=== PATIENT | female | born 1940 | race Caucasian/White ===

== ENCOUNTER 2024-03-10 05:56 | Inpatient (IN) ==
--- NOTE | 2024-03-10 06:47 | Emergency Department Note ---
Impression & Plan Hypoxia, Pancolitis, Pneumonia ED Provider Note NAME: ZABRINA QUICK AGE: 83 SEX: F : 1940 ARRIVES VIA: Walk-In INFORMANT: Patient ED PROVIDER(S): Artis Waddell DO CHIEF COMPLAINT: abdominal pain HPI: Patient is an 83-year-old female with a past medical history of anxiety, diabetes who presents to the ER for left lower quadrant abdominal pain. She admits to history of diverticulitis. Pain has been present since Wednesday and getting worse. Today she is having nausea and vomiting. Patient denies any headache or change in vision. No chest pain or shortness of breath. No dysuria, urgency, or frequency. No other exacerbating or remitting factors. ADDITIONAL HISTORY OBTAINED: Per HPI Chronic Medical/Social Conditions Affecting Care: Per HPI PAST MEDICAL HISTORY:See Below PAST SURGICAL HISTORY:See Below FAMILY HISTORY:See Below SOCIAL HISTORY:See Below HOME MEDICATIONS:See Below ALLERGIES:See Below VITALS:See Below PHYSICAL EXAMINATION: GENERAL: Sitting up in bed, alert, chronically ill-appearing, disheveled EYE EXAM: normal conjunctiva. OROPHARYNX: mucous membranes are moist NECK: supple, no nuchal rigidity, no adenopathy, non-tender LUNGS: Clear to auscultation. Normal chest wall mechanics HEART: no murmurs, S1 normal and S2 normal ABDOMEN: abdomen soft, TTP in LLQ, normo-active bowel sounds, no masses, no rebound or guarding. UPPER EXTREMITIES: upper extremities are grossly normal. LOWER EXTREMITIES: No pitting edema. NEURO EXAM: Normal sensorium, cranial nerves II-XII grossly intact, normal speech, no gross weakness of arms, no gross weakness of legs. MEDICAL DECISION MAKING: Patient is an 83-year-old female who presents ER for the above-stated complaint. IV was established blood work was obtained. Labs show leukocytosis of 13.7 thousand. No significant anemia. BMP was fairly unremarkable with exception of elevated glucose at 168. Mag low at 1.6. T. bili at 1.4. LFTs troponin were negative. Lipase was normal. UA was contaminated with multiple epithelial cells. CT abdomen pelvis was obtained and showed a diffuse pancolitis and pneumonia. Chest x-ray confirms infiltrate. Patient was updated at bedside. She was given IV Levaquin and IV fluids. Discussed case with the hospitalist for further evaluation management treatment. She remained on 2 L nasal cannula throughout her stay in the ER due to the hypoxia. Consults/Care Managements Discussions: Per MDM Triage Nursing notes reviewed. Limited review of prior medical records performed Vital Signs: reviewed and remarkable for no significant abnormalities Differential diagnosis: Differential diagnoses includes but is not limited to gastritis, peptic ulcer disease, GERD, gallbladder disease, pancreatitis, small bowel obstruction, appendicitis, diverticulitis, hernia, urinary tract infection, torsion, perforation, trauma, infectious. ER treatment provided: See below Diagnostics interpreted by me include EKG and cardiac monitoring as listed below: -Cardiac Monitoring: An order was placed for continuous cardiac monitoring. The monitor shows a rate of 92 with sinus rhythm. -ECG: Sinus rhythm rate of [address] changes in the high lateral leads Septal Q waves QTc 466 -Laboratory studies:Interpreted by me as stated above in MDM and shown below. Imaging studies: Xrays: As interpreted by me: Portable AP upright 1 view of the chest shows left lower lobe infiltrate CTs show: CT abdomen pelvis as described above Procedures:none Critical Care: I have personally spent 32 minutes of critical care time in the direct management of this patient. This includes bedside care, interpretation of diagnostic studies, and testing, discussion with consultants, patient, and family members, and other required patient management activities. This 32 minutes is in excess of all separately billable procedures. Past Med/Surg History Problem List (Updated 03/10/24 @ 12:33 by Artis Waddell DO) Pneumonia (Acute) Pancolitis (Acute) Hypoxia (Acute) Hypoxia Lobar pneumonia Colitis Osteoporosis Anxiety Hyperlipidemia Diabetes Cerumen impaction Dependent edema (Acute) Left thyroid nodule Tympanic membrane perforation Thyroid nodule Mixed conductive and sensorineural hearing loss of right ear with restricted hearing of left ear Sensorineural hearing loss (SNHL) of left ear with restricted hearing of right ear Medical History (Updated 03/10/24 @ 12:33 by Artis Waddell DO) History of benign breast biopsy Osteoarthritis DDD (degenerative disc disease) Diverticular disease DM type 2 (diabetes mellitus, type 2) Hearing deficit Left > Right (wears hearing aid on left side) Surgical History History of right cataract surgery History of tonsillectomy History of removal of cyst History of colonoscopy History of laparoscopic appendectomy Hx laparoscopic cholecystectomy Family History Mother Stroke Cancer Sister Heart disease Son Heart disease Myocardial infarction Denies family history of Hearing loss No family history of adverse response to anesthesia No family history of bleeding disorder Allergies Asthma Social History Smoking Status: Never smoker Second Hand Exposure: Yes (son and d-i-l smoke); Do You Dip or Chew Tobacco: No; Hx Alcohol Use: No Hx Substance Use: No Preferred Language: Venezuelan Communication Ability: Effective Visual Impairment: Limited Hearing Ability: 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 Beliefs That Will Affect Care: None marital status: / Current Living Situation: Alone current occupational status: retired How many Children do You have: 3 Feels Safe at Home: Yes Childhood Exposure to Second-Hand Smoke: Yes caffeine: Yes (1 cup of coffee/tea per day) Dental Care, Regularly: No Physical Activity Frequency: Does not Exercise Seatbelt Use: always Sunscreen Use: Yes Assistive Devices: Cane, Denture - Upper, Denture - Lower, Glasses and Hearing Aid - Left Allergies Allergies Allergy/AdvReac Type Severity Reaction Status Date / Time cephalexin Allergy Unknown UNKNOWN Verified 03/09/24 16:43 morphine Allergy Unknown UNKNOWN Verified 03/09/24 16:43 Sulfa (Sulfonamide Allergy Unknown Hives Verified 03/09/24 16:43 Antibiotics) Cephalosporins Allergy Unknown Verified 03/09/24 16:43 codeine AdvReac Unknown disoriented Verified 03/09/24 16:43 metronidazole AdvReac Unknown hallucinati Verified 03/09/24 16:43 ons Home Meds Home Medications Medication Instructions Recorded Confirmed levocetirizine 5 mg tablet (Xyzal) 2.5 mg PO QPM 01/21/21 03/10/24 aspirin 81 mg tablet,delayed 81 mg PO QAM 09/25/21 03/10/24 release calcium carbonate 600 mg-vitamin 1 tab PO BID 09/25/21 03/10/24 D3 10 mcg (400 unit) tablet (Calcium 600 + D(3)) peg 400-propylene glycol (PF) 0.4 1 drp ophthalmic (eye) QID 09/25/21 03/10/24 %-0.3 % eye drops in a dropperette (Systane (PF)) semaglutide 7 mg tablet (Rybelsus) 7 mg PO QAM 09/25/21 03/10/24 blood sugar diagnostic ([facility] 01/17/24 03/09/24 Verio test strips) buspirone 10 mg tablet 10 mg PO BID PRN Anxiety 01/17/24 03/10/24 ibuprofen 200 mg tablet 200 mg PO Q4H PRN Pain 01/17/24 03/10/24 lancets 30 gauge ([facility] 01/17/24 03/09/24 Plus Lancet) meclizine 25 mg tablet 25 mg PO TID PRN dizziness 01/17/24 03/10/24 metformin 500 mg tablet,extended 500 mg PO DAILY 01/17/24 03/10/24 release 24 hr tramadol 50 mg tablet 25 mg PO BID PRN Pain 01/17/24 03/10/24 alendronate 70 mg tablet 70 mg PO WK 03/10/24 03/10/24 olopatadine 0.1 % eye drops 1 drp ophthalmic (eye) BID 03/10/24 03/10/24 Previous Rx's Medication Instructions Recorded fluticasone propionate 50 2 spray intranasal DAILY #15.8 mL 02/10/24 mcg/actuation nasal spray,suspension atorvastatin 20 mg tablet (Lipitor) 20 mg PO QAM #90 tabs 02/14/24 gabapentin 100 mg capsule 100 mg PO BID #180 caps 02/14/24 Results & Data (ED) Vital Signs Vital Signs - 24 hr 03/10/24 06:00 03/10/24 06:18 03/10/24 06:35 Temperature 37.0 C 36.9 C Temperature Source Oral Oral Pulse Rate 106 H 104 H Pulse Rate [Apical] 103 H Pulse Rhythm Regular Pulse Rhythm [Apical] Regular Pulse Strength Normal Respiratory Rate 20 19 Respiratory Effort / Characteristics Non-Labored Spontaneous Non-Labored Spontaneous Respiratory Depth Normal Normal Respiratory Pattern Regular Regular Blood Pressure 112/64 Blood Pressure [Right Arm] 128/74 Blood Pressure Mean 80 Blood Pressure Mean [Right Arm] 92 Blood Pressure Position Sitting Blood Pressure Position [Right Arm] Lying Pulse Oximetry 92 94 Oxygen Delivery Method Room Air Room Air Oxygen Flow Rate Sepsis Recent Fever Within 48 Hours No Sepsis New/Unexplained Change in Mental Status No Sepsis Action Taken by Nursing No Action Required 03/10/24 06:58 03/10/24 07:00 03/10/24 09:00 Temperature Temperature Source Pulse Rate Pulse Rate [Apical] 80 Pulse Rhythm Pulse Rhythm [Apical] Pulse Strength Respiratory Rate 20 Respiratory Effort / Characteristics Non-Labored Spontaneous Respiratory Depth Normal Respiratory Pattern Blood Pressure Blood Pressure [Right Arm] 120/61 Blood Pressure Mean Blood Pressure Mean [Right Arm] 80 Blood Pressure Position Blood Pressure Position [Right Arm] Pulse Oximetry 88 L 96 96 Oxygen Delivery Method Room Air Nasal Cannula Nasal Cannula Oxygen Flow Rate 2 2 Sepsis Recent Fever Within 48 Hours Sepsis New/Unexplained Change in Mental Status Sepsis Action Taken by Nursing Laboratory Data 03/10/24 06:33 03/10/24 06:33 Lab Results 03/10/24 03/10/24 Range/Units 06:33 06:40 WBC 13.72 H (4.8-10.8) K/ul RBC 4.89 (4.20-5.40) M/uL Hgb 15.3 (12.0-16.0) g/dl Hct 45.5 (37.0-47.0) % MCV 93.0 (80.0-100.0) fL MCH 31.3 (25.0-34.0) pg MCHC 33.6 (32.0-36.0) g/dL RDW Std Deviation 47.0 H (36.4-46.3) fL RDW Coeff of Jeromy 13.7 (11.5-14.5) % Plt Count 277 (130-400) K/uL MPV 9.8 (9.4-12.4) fL Immature Gran % (Auto) 0.5 % Neut % (Auto) 88.9 % Lymph % (Auto) 4.3 % Benson % (Auto) 5.7 % Eos % (Auto) 0.3 % Baso % (Auto) 0.3 % Neut # (Auto) 12.20 H (1.40-6.50) K/uL Lymph # (Auto) 0.59 L (1.20-3.40) K/uL Benson # (Auto) 0.78 H (0.11-0.59) K/uL Eos # (Auto) 0.04 (0.00-0.50) K/uL Baso # (Auto) 0.04 (0.00-0.20) K/uL Immature Gran # (Auto) 0.07 (0.01-0.20) K/uL Sodium 135 L (136-145) mmol/L Potassium 3.7 (3.5-5.1) mmol/L Chloride 98 (98-107) mmol/L Carbon Dioxide 24 (21-32) mmol/L Anion Gap 13 H (3-11) BUN 22 (6-23) mg/dl Creatinine 0.90 (0.6-1.2) mg/dl Est Cr Clr Drug Dosing 38.6 ml/min Est GFR ( Amer) 69.0 ml/min Est GFR (Non-Af Amer) 59.5 ml/min BUN/Creatinine Ratio 24.4 H (10-20) Glucose 168 H (70-99(Fasting)) mg/dl Calcium 9.2 (8.6-10.3) mg/dl Magnesium 1.6 L (1.7-2.4) mg/dl Total Bilirubin 1.4 H (0.2-1.0) mg/dl AST 28 (13-39) U/L ALT 19 (7-52) U/L Alkaline Phosphatase 62 (34-104) U/L Troponin I High Sens 12.1 (0-14) pg/ml Total Protein 7.9 (6.0-8.3) gm/dl Albumin 4.1 (3.4-5.0) gm/dl Globulin 3.8 (2.5-4.0) gm/dl Albumin/Globulin Ratio 1.1 (0.9-2) Lipase 7 L (11-82) U/L Urine Color Dark Yellow Urine Appearance Turbid A (Clear) Urine pH 5.0 (4.5-7.5) Ur Specific [place] 1.033 H (1.000-1.030) Urine Protein 1+ H (Negative) Urine Glucose (UA) Negative (Negative) Urine Ketones 2+ H (Negative) Urine Blood Negative (Negative) Urine Nitrite Negative (Negative) Urine Bilirubin 1+ H (Negative) Urine Urobilinogen Negative (Negative) Ur Leukocyte Esterase Negative (Negative) Urine WBC (Auto) 6-10 H (0-5) /hpf Urine RBC (Auto) 3-5 H (0-2) /hpf U Hyaline Cast (Auto) 6-10 H (0-2) /lpf U Epithel Cells (Auto) >20 H (0-2) /hpf Urine Bacteria (Auto) None Seen (None Seen) Administered Medications Discontinued Medications Sodium Chloride (Nss) 500 mls @ 999 mls/hr IV .Q31M STA Stop: 03/10/24 06:38 Last Infusion: 03/10/24 07:29 Dose: Infused Documented By: Admin: 03/10/24 06:56 Dose: 999 mls/hr Documented By: TIN Levofloxacin/Dextrose (Levaquin/D5w) 750 mg in 150 mls @ 100 mls/hr IV NOW STA Stop: 03/10/24 10:27 Last Infusion: 03/10/24 11:55 Dose: Infused Documented By: Admin: 03/10/24 09:53 Dose: 100 mls/hr Documented By: ZEUS Ioversol (Optiray 320 100ml) 94 ml IV ONCE ONE Stop: 03/10/24 07:29 Last Admin: 03/10/24 07:29 Dose: 94 ml Documented By: RICHARD Ketorolac Tromethamine (Ketorolac Tromethamine 15 Mg/Ml Vial) 10 mg IV NOW STA Stop: 03/10/24 06:09 Last Admin: 03/10/24 06:51 Dose: 10 mg Documented By: TIN Ondansetron HCl (Ondansetron Inj 2 Mg/Ml 2 Ml Vial) 4 mg IV NOW STA Stop: 03/10/24 06:09 Last Admin: 03/10/24 06:52 Dose: 4 mg Documented By: TIN Imaging Data Radiologist's Impression: Abdomen/Pelvis CT 03/10/24 06:08 CT SCAN OF THE ABDOMEN AND PELVIS WITH IV CONTRAST CLINICAL HISTORY: Lower abdominal pain. COMPARISON STUDY: Abdominal CT dated 04/15/2016. TECHNIQUE: Following the IV administration of 94 cc of Optiray 320, CT scan of the abdomen and pelvis is performed from the lung bases to the proximal femora. Images are reviewed in the axial, sagittal, and coronal planes. IV contrast was administered without complication. A dose lowering technique was utilized adhering to the principles of ALARA. CT DOSE: 1093.69 mGy.cm FINDINGS: Lung bases: The heart is normal in size and without pericardial effusion. Dependent consolidation is seen at both lung bases. No pleural effusion is identified. There is a small hiatal hernia. Liver: The contrast-enhanced liver is normal in size, contour, and attenuation. There is mild intrahepatic biliary ductal dilatation. The hepatic veins and portal veins are patent. Gallbladder: Surgically absent noting clips in the gallbladder fossa. Spleen: Normal in size and attenuation. There are calcified splenic granulomas. 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 Pancreas: Unremarkable. Adrenal glands: Unremarkable. Kidneys: The contrast enhanced kidneys are normal in size and without hydronephrosis. The kidneys enhance symmetrically. Abdominal vasculature: The abdominal aorta is normal in course and caliber noting mild atherosclerotic calcification. Bowel: There is diffuse wall thickening of the colon and rectum, which is greatest involving the left colon. The left colon is edematous with surrounding inflammation. Duodenal diverticula are noted. There is mild colonic diverticulosis without CT evidence of acute diverticulitis. The appendix is not identified and reported surgically absent. Peritoneum: There is no intraperitoneal free air or abdominal ascites. There is a small fat-containing umbilical hernia. Lymphadenopathy: None. Pelvic viscera: The bladder is decompressed and appears circumferentially thick walled. The uterus and adnexa are normal as visualized. Skeletal structures: The skeletal structures are osteopenic. There is moderate lumbosacral spondylosis. No lytic or blastic lesions are seen. IMPRESSION: 1. Findings are consistent with a nonspecific proctocolitis, greatest involving the left colon. Correlate clinically. 2. Mild colonic diverticulosis without CT evidence of acute diverticulitis. 3. Dependent airspace consolidation at both lung bases could represent atelectasis and/or pneumonia. Correlate clinically. 4. The bladder wall is decompressed and appears circumferentially thick walled. Correlate with clinical findings and urinalysis. 5. Additional findings as above. ACT 112: Negative or not required by law. Electronically signed by: Yonny Aceves M.D. 03/10/2024 8:24 AM Chest X-Ray 03/10/24 08:27 SINGLE VIEW CHEST CLINICAL HISTORY: Cough FINDINGS: An AP, portable, upright chest radiograph is compared to study dated 05/16/2014. The cardiomediastinal silhouette is top normal for projection noting atherosclerotic calcification of the thoracic aorta. Airspace consolidation is seen at the medial left lung base. No large pleural effusion or pneumothorax is identified. The skeletal structures are osteopenic. The bony thorax is grossly intact. Excreted IV contrast is seen in the renal collecting systems. IMPRESSION: Airspace consolidation is noted at the medial left lung base. This could represent atelectasis versus pneumonia. Clinical correlation will be required and radiographic follow-up to resolution is recommended. ACT 112: Negative or not required by law. Electronically signed by: Yonny Aceves M.D. 03/10/2024 8:43 AM Discharge Plan Visit Data Chief Complaint: Abdominal Pain Stated Complaint: ABD PAIN ED Provider: Artis Waddell Discharge Problem: Hypoxia, Pancolitis, Pneumonia Forms Stand Alone Forms: [facility] Prescriptions Prescriptions: No Action fluticasone propionate 50 mcg/actuation spray,suspension 2 spray intranasal DAILY Qty: 15.8 3RF Rx Instructions: administer into each nostril gabapentin 100 mg capsule 100 mg PO BID Qty: 180 3RF atorvastatin [Lipitor] 20 mg tablet 20 mg PO QAM Qty: 90 3RF levocetirizine [Xyzal] 5 mg tablet 2.5 mg PO QPM Rx Instructions: Unable to verify OTC meds at this date/time. meclizine 25 mg tablet 25 mg PO TID PRN (Reason: dizziness) tramadol 50 mg tablet 25 mg PO BID PRN (Reason: Pain) (DME) OneTouch Verio test strips Strip See Rx Instructions .ROUTE .MEDSUPPLY Qty: 10 Rx Instructions: As directed (DME) lancets [OneTouch Delica Plus Lancet] 30 gauge misc See Rx Instructions .ROUTE .MEDSUPPLY Qty: 100 Rx Instructions: As directed metformin 500 mg tablet extended release 24 hr 500 mg PO DAILY aspirin 81 mg Tablet,Delayed Release (Dr/Ec) 81 mg PO QAM Rx Instructions: Unable to verify OTC meds at this date/time. Systane (PF) 0.4-0.3 % Dropperette 1 drp OPHTHALMIC (EYE) QID Rx Instructions: Unable to verify OTC meds at this date/time. calcium carbonate-vitamin D3 [Calcium 600 + D(3)] 600 mg-10 mcg (400 unit) Tablet 1 tab PO BID Rx Instructions: Unable to verify OTC meds at this date/time. Rybelsus 7 mg Tablet 7 mg PO QAM buspirone 10 mg tablet 10 mg PO BID PRN (Reason: Anxiety) ibuprofen 200 mg tablet 200 mg PO Q4H PRN (Reason: Pain) Rx Instructions: Unable to verify OTC meds at this date/time. olopatadine 0.1 % drops 1 drp ophthalmic (eye) BID Rx Instructions: At intervals of 6 - 8 hours alendronate 70 mg tablet 70 mg PO WK Rx Instructions: 70 mg orally TAKE 1 TABLET BY MOUTH ONCE A WEEK WITH 8OZ OF WATER 30 MINUTES BEFORE FIRST MEAL OF THE DAY; Referrals Referrals: Henri Teran CRNP [Primary Care Provider] - Discharge Problem: Pneumonia Qualifiers: Pneumonia type: due to unspecified organism Laterality: unspecified laterality Lung location: unspecified part of lung Qualified Code(s): J18.9 - Pneumonia, unspecified organism
[2024-03-10] MEDS: KETOROLAC TROMETHAMINE 15 MG/ML VIAL IV STA (06:51)
[2024-03-10] MEDS: ONDANSETRON INJ 2 MG/ML 2 ML VIAL IV STA (06:52)
[2024-03-10] MEDS: SODIUM CHLORIDE 0.9% 500 ML IV STA (06:56)
[2024-03-10 07:00] LABS: Basophils # (auto) 0.04 K/uL (0.00-0.20); Basophils % (auto) 0.3 %; Eosinophils # (auto) 0.04 K/uL (0.00-0.50); Eosinophils % (auto) 0.3 %; Hematocrit (blood only) 45.5 % (37.0-47.0); Hemoglobin 15.3 g/dl (12.0-16.0); Immature Granulocytes # (auto) 0.07 K/uL (0.01-0.20); Immature Granulocytes % (auto) 0.5 %; Lymphocytes # (auto) 0.59 K/uL (1.20-3.40); Lymphocytes % (auto) 4.3 %; Mean Corpuscular Hemoglobin 31.3 pg (25.0-34.0); Mean Corpuscular Hgb Conc 33.6 g/dL (32.0-36.0); Mean Platelet Volume 9.8 fL (9.4-12.4); Monocytes # (auto) 0.78 K/uL (0.11-0.59); Monocytes % (auto) 5.7 %; Neutrophils % (auto) 88.9 %; Platelet Count 277 K/uL (130-400); RDW Coefficient of Variation 13.7 % (11.5-14.5); Red Blood Count 4.89 M/uL (4.20-5.40); White Blood Count 13.72 K/ul (4.8-10.8)
[2024-03-10 07:25] LABS: Albumin Globulin Ratio 1.1 (0.9-2); Albumin Level 4.1 gm/dl (3.4-5.0); BUN Creatinine Ratio 24.4 (10-20); Bilirubin,Total 1.4 mg/dl (0.2-1.0); Calcium 9.2 mg/dl (8.6-10.3); Creatinine Clr Calc Pharmacy 38.6 ml/min; Est GFR (Non-African American) 59.5 ml/min; Globulin 3.8 gm/dl (2.5-4.0); Magnesium 1.6 mg/dl (1.7-2.4); Potassium 3.7 mmol/L (3.5-5.1); Total Protein 7.9 gm/dl (6.0-8.3)
[2024-03-10] MEDS: OPTIRAY 320 100ml IV ONE (07:29)
[2024-03-10 07:30] LABS: Troponin I High Sensitivity 12.1 pg/ml (0-14)
[2024-03-10 08:14] LABS: Appearance Urine Turbid (Clear); Bacteria Urine Automated None Seen (None Seen); Bilirubin Urine 1+ (Negative); Blood Urine Negative (Negative); Color Urine Dark Yellow; Epithelial Cell Urine Auto >20 /hpf (0-2); Glucose Urine UA Negative (Negative); Ketones Urine 2+ (Negative); Leukocyte Esterase Urine Negative (Negative); Nitrite Urine Negative (Negative); Protein Urine 1+ (Negative); Specific Gravity Urine 1.033 (1.000-1.030); Urobilinogen Urine Negative (Negative)
--- NOTE | 2024-03-10 08:25 | CT Scan Report ---
CT SCAN OF THE ABDOMEN AND PELVIS WITH IV CONTRAST CLINICAL HISTORY: Lower abdominal pain. COMPARISON STUDY: Abdominal CT dated 04/15/2016. TECHNIQUE: Following the IV administration of 94 cc of Optiray 320, CT scan of the abdomen and pelvi s is performed from the lung bases to the proximal femora. Images are reviewed in the axial, sagittal , and coronal planes. IV contrast was administered without complication. A dose lowering technique wa s utilized adhering to the principles of ALARA. CT DOSE: 1093.69 mGy.cm FINDINGS: Lung bases: The heart is normal in size and without pericardial effusion. Dependent consolidation is seen at both lung bases. No pleural effusion is identified. There is a small hiatal hernia. Liver: The contrast-enhanced liver is normal in size, contour, and attenuation. There is mild intrahe patic biliary ductal dilatation. The hepatic veins and portal veins are patent. Gallbladder: Surgically absent noting clips in the gallbladder fossa. Spleen: Normal in size and attenuation. There are calcified splenic granulomas. 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 Pancreas: Unremarkable. Adrenal glands: Unremarkable. Kidneys: The contrast enhanced kidneys are normal in size and without hydronephrosis. The kidneys enh ance symmetrically. Abdominal vasculature: The abdominal aorta is normal in course and caliber noting mild atheroscleroti c calcification. Bowel: There is diffuse wall thickening of the colon and rectum, which is greatest involving the left colon. The left colon is edematous with surrounding inflammation. Duodenal diverticula are noted. Th ere is mild colonic diverticulosis without CT evidence of acute diverticulitis. The appendix is not identified and reported surgically absent. Peritoneum: There is no intraperitoneal free air or abdominal ascites. There is a small fat-containin g umbilical hernia. Lymphadenopathy: None. Pelvic viscera: The bladder is decompressed and appears circumferentially thick walled. The uterus an d adnexa are normal as visualized. Skeletal structures: The skeletal structures are osteopenic. There is moderate lumbosacral spondylosi s. No lytic or blastic lesions are seen. IMPRESSION: 1. Findings are consistent with a nonspecific proctocolitis, greatest involving the left colon. Corre late clinically. 2. Mild colonic diverticulosis without CT evidence of acute diverticulitis. 3. Dependent airspace consolidation at both lung bases could represent atelectasis and/or pneumonia. Correlate clinically. 4. The bladder wall is decompressed and appears circumferentially thick walled. Correlate with clinic al findings and urinalysis. 5. Additional findings as above. ACT 112: Negative or not required by law. Electronically signed by: Yonny Aceves M.D. 03/10/2024 8:24 AM
--- NOTE | 2024-03-10 08:45 | XRay Report ---
SINGLE VIEW CHEST CLINICAL HISTORY: Cough FINDINGS: An AP, portable, upright chest radiograph is compared to study dated 05/16/2014. The cardiom ediastinal silhouette is top normal for projection noting atherosclerotic calcification of the thorac ic aorta. Airspace consolidation is seen at the medial left lung base. No large pleural effusion or p neumothorax is identified. The skeletal structures are osteopenic. The bony thorax is grossly intact. Excreted IV contrast is seen in the renal collecting systems. IMPRESSION: Airspace consolidation is noted at the medial left lung base. This could represent atelec tasis versus pneumonia. Clinical correlation will be required and radiographic follow-up to resolutmarie n is recommended. ACT 112: Negative or not required by law. Electronically signed by: Yonny Aceves M.D. 03/10/2024 8:43 AM
[2024-03-10] MEDS: levoFLOXacin/D5W 750 MG/150 ML BAG IV STA (09:53)
--- NOTE | 2024-03-10 11:13 | History & Physical Report ---
Date of Service March 10, 2024 Assessment & Plan (1) Colitis: Plan: Patient presents to the hospital with 2-day history of abdominal pain and diarrhea. Denies any blood in the stool. CT scan of the abdomen pelvis showed evidence of diffuse colitis. Could be infectious or inflammatory. Will obtain stool BioFire, stool C. difficile Empirically start IV Zosyn and Levaquin Consult GI (2) Lobar pneumonia: Plan: CT showed evidence of lobar consolidation, likely pneumonia Cultures have been obtained Empirically started on IV Levaquin and Zosyn Continue to monitor cultures. (3) Hypoxia: Plan: Secondary to pneumonia above Patient not on oxygen at home here in the hospital currently on 2 L of oxygen through nasal cannula Wean as tolerated. (4) Diabetes: Plan: Blood glucose under good control, takes metformin at home, will hold Start insulin sliding scale Diabetic diet. (5) Anxiety: Plan: Resume home medications (6) Osteoporosis: Plan: Resume home medications Plan Admit to inpatient MedSurg Full code DVT prophylaxis SCDs. History of Present Illness Chief Complaint: Abdominal pain, diarrhea Primary Care Provider: JOON Soto Is an 84-year-old female with a history of type 2 diabetes, osteoporosis, anxiety who presents to the hospital with complaints of abdominal pain and diarrhea. According to the patient patient was in her usual state of health until last Wednesday couple of days ago when she developed lower quadrant abdominal pain followed by diarrhea. She denies blood in the stool denies fevers or chills but said because the above symptoms were not getting any better she decided to come to the hospital for further evaluation. In the emergency department WBC was 13,000 CT scan of the abdomen and pelvis was done which showed evidence of nonspecific proctocolitis greatest involving the left colon. The lung cuts also showed evidence of airspace consolidation. Of note patient states he she started coughing yesterday prior. Cultures have been obtained she has been empirically started on IV antibiotics and will be admitted to the hospital further management. Allergies Allergy/AdvReac Type Severity Reaction Status Date / Time cephalexin Allergy Unknown UNKNOWN Verified 03/09/24 16:43 morphine Allergy Unknown UNKNOWN Verified 03/09/24 16:43 Sulfa (Sulfonamide Allergy Unknown Hives Verified 03/09/24 16:43 Antibiotics) Cephalosporins Allergy Unknown Verified 03/09/24 16:43 codeine AdvReac Unknown disoriented Verified 03/09/24 16:43 metronidazole AdvReac Unknown hallucinati Verified 03/09/24 16:43 ons Home Medications Medication Instructions Recorded Confirmed Type clotrimazole 1 % topical cream 1 applic topical DAILY apply to 07/24/20 03/09/24 History (Antifungal (clotrimazole)) belly ondansetron HCl 4 mg tablet 4 mg PO Q6H PRN Nausea 07/24/20 03/09/24 History (Zofran) triamcinolone acetonide 0.1 % 1 applic topical DAILY apply to 07/24/20 03/09/24 History topical cream legs levocetirizine 5 mg tablet (Xyzal) 2.5 mg PO QPM 01/21/21 03/09/24 History aspirin 81 mg tablet,delayed 81 mg PO QAM 09/25/21 03/09/24 History release calcium carbonate 600 mg-vitamin 1 tab PO BID 09/25/21 03/09/24 History D3 10 mcg (400 unit) tablet (Calcium 600 + D(3)) olopatadine 0.7 % eye drops 1 drp ophthalmic (eye) DAILY PRN ud 09/25/21 03/09/24 History peg 400-propylene glycol (PF) 0.4 1 drp ophthalmic (eye) QID 09/25/21 03/09/24 History %-0.3 % eye drops in a dropperette (Systane (PF)) semaglutide 7 mg tablet (Rybelsus) 7 mg PO QAM 09/25/21 03/09/24 History blood sugar diagnostic (OneTouch #10 ea 01/17/24 03/09/24 History Verio test strips) buspirone 10 mg tablet 10 mg PO BID PRN Anxiety 01/17/24 03/09/24 History furosemide 20 mg tablet (Lasix) 20 mg PO BID PRN Fluid Retention 01/17/24 03/09/24 History ibuprofen 200 mg tablet 200 mg PO Q4H PRN 01/17/24 03/09/24 History lancets 30 gauge (OneTouch Sukhwinder #100 ea 01/17/24 03/09/24 History Plus Lancet) meclizine 25 mg tablet 25 mg PO TID PRN dizziness 01/17/24 03/09/24 History metformin 500 mg tablet,extended 500 mg PO DAILY 01/17/24 03/09/24 History release 24 hr tramadol 50 mg tablet 25 mg PO BID PRN Pain 01/17/24 03/09/24 History fluticasone propionate 50 2 spray intranasal DAILY #15.8 mL 02/10/24 03/09/24 Rx mcg/actuation nasal spray,suspension alendronate 70 mg tablet 70 mg PO .COMPLEX #16 tabs 02/14/24 03/09/24 Rx atorvastatin 20 mg tablet (Lipitor) 20 mg PO QAM #90 tabs 02/14/24 03/09/24 Rx gabapentin 100 mg capsule 100 mg PO BID #180 caps 02/14/24 03/09/24 Rx Past Med/Surg History Problem List (Updated 03/10/24 @ 11:11 by Dimitry Andrade MD) Hypoxia Lobar pneumonia Colitis Osteoporosis Anxiety Hyperlipidemia Diabetes Cerumen impaction Dependent edema (Acute) Left thyroid nodule Tympanic membrane perforation Thyroid nodule Mixed conductive and sensorineural hearing loss of right ear with restricted hearing of left ear Sensorineural hearing loss (SNHL) of left ear with restricted hearing of right ear Medical History (Updated 03/10/24 @ 11:11 by Dimitry Andrade MD) History of benign breast biopsy Osteoarthritis DDD (degenerative disc disease) Diverticular disease DM type 2 (diabetes mellitus, type 2) Hearing deficit Left > Right (wears hearing aid on left side) Surgical History History of right cataract surgery History of tonsillectomy History of removal of cyst History of colonoscopy History of laparoscopic appendectomy Hx laparoscopic cholecystectomy Family History Mother Stroke Cancer Sister Heart disease Son Heart disease Myocardial infarction Denies family history of Hearing loss No family history of adverse response to anesthesia No family history of bleeding disorder Allergies Asthma Social History Smoking Status: Never smoker Second Hand Exposure: Yes (son and d-i-l smoke); Do You Dip or Chew Tobacco: No; Hx Alcohol Use: No Hx Substance Use: No Preferred Language: Portuguese Communication Ability: Effective Visual Impairment: Limited Hearing Ability: Use of Hearing Aid Carroting Machine Offbearer Required: No Beliefs That Will Affect Care: None marital status: / Current Living Situation: Alone current occupational status: retired How many Children do You have: 3 Feels Safe at Home: Yes Childhood Exposure to Second-Hand Smoke: Yes caffeine: Yes (1 cup of coffee/tea per day) Dental Care, Regularly: No Physical Activity Frequency: Does not Exercise Seatbelt Use: always Sunscreen Use: Yes Assistive Devices: Cane, Denture - Upper, Denture - Lower, Glasses and Hearing Aid - Left Review of Systems Review of Systems: All systems reviewed are negative, apart from the ones contained in the history. Physical Exam Physical Exam: The patient is awake, alert and oriented 3, well developed and well nourished, normocephalic and atraumatic, lying in bed and in no acute distress. HEENT--PERRL, EOMI, mucous membranes and oropharynx mildly dry Neck--supple. No JVD. No bruits. Thyroid normal, trachea midline, no adenopathy. Heart--normal S1 and S2. No murmurs, rubs or gallops. Lungs--clear bilaterally, no respiratory distress, no accessory muscle use. Abdomen--normal bowel sounds and soft. Extremities--no cyanosis or clubbing. No edema. Dermatologic--normal skin turgor, normal color, no abnormal lymph nodes, no rash. Neurologic--cranial nerves II through XII grossly intact. Rheumatologic--normal range of motion. Psychiatric--normal affect. Results & Data Results & Data Vital Signs (Past 12 Hours) Vital Signs Temp Pulse Pulse Resp BP BP Pulse Ox 03/10/24 09:00 80 20 120/61 96 03/10/24 07:00 96 03/10/24 06:58 88 L 03/10/24 06:35 98.4 F 103 H 19 128/74 94 03/10/24 06:18 104 H 03/10/24 06:00 98.6 F 106 H 20 112/64 92 O2 Del Method O2 Flow Rate 03/10/24 09:00 Nasal Cannula 2 03/10/24 07:00 Nasal Cannula 2 03/10/24 06:58 Room Air 03/10/24 06:35 Room Air 03/10/24 06:18 03/10/24 06:00 Room Air PG Care Time/CCT Total # of Minutes Spent Total Time Spent with Patient: Total time spent is greater than 50% in coordination of care (as documented) at patient's floor/unit and/or counseling patient: Coding Level of Care Code 13362 INT INP/OBS CARE 3/75MIN Diagnoses Colitis K52.9 Lobar pneumonia J18.1 Hypoxia R09.02 Diabetes E11.9 Anxiety F41.9 Osteoporosis M81.0 Time Spent (min) 75
[2024-03-10] MEDS ORDERED: busPIRone 5 MG TAB PO PRN (13:09)
[2024-03-10 13:25] LABS: Cdiff Toxin B Gene (2yr or >) Positive Cdiff Gene (Neg)
[2024-03-10] MEDS: levoFLOXacin/D5W 750 MG/150 ML BAG IV SCH (13:45)
--- NOTE | 2024-03-10 13:46 | Gastrointestinal Consultation ---
Date of Consultation March 10, 2024 Assessment & Plan (1) Colitis: Plan Patient is an 83 year old female admitted with pneumonia and had 2 days of nausea, vomiting, abdominal pain, and diarrhea. CT suggestive of colitis. stool studies pending. she tells me she feels somewhat better since coming ot the hospital. - okay to star patient on clears. - await stool studies. - patient currently on levaquin and zosyn for pneumonia. - will continue to monitor. Supervising Physician Co-Signing Physician Notes Agree with ZOFIA Pino as above Interviewed and examined patient and agree with above Abd: Soft, NT, ND, +BS Continue current therapy and supportive care Await stool studies History of Present Illness Reason for Consultation: Colitis Requesting Physician: Dimitry Andrade MD Attending Physician: Bartolome Rodriguez History of Present Illness Patient is an 83 year old female with a past medical history of anxiety, diabetes who presented to the ER today for complaints of 2 days of left lower quadrant abdominal pain, nausea, vomiting, and diarrhea. patient was having upwards of 7 bowel movements daily. no bleeding. no melena. She tells me that her pain is mostly lower abdomen. She tells me that CT 03/10/24 nonspecific proctocolitis worse over the left colon. stool studies are pending. she had last colonoscopy in 2016 with Agustina that patient tells me was reportedly normal. she tells me that since her admission she does feel somewhat better. rest of GI ros unremarkable. Allergies Allergy/AdvReac Type Severity Reaction Status Date / Time cephalexin Allergy Unknown UNKNOWN Verified 03/09/24 16:43 morphine Allergy Unknown UNKNOWN Verified 03/09/24 16:43 Sulfa (Sulfonamide Allergy Unknown Hives Verified 03/09/24 16:43 Antibiotics) Cephalosporins Allergy Unknown Verified 03/09/24 16:43 codeine AdvReac Unknown disoriented Verified 03/09/24 16:43 metronidazole AdvReac Unknown hallucinati Verified 03/09/24 16:43 ons Home Medications Medication Instructions Recorded Confirmed Type levocetirizine 5 mg tablet (Xyzal) 2.5 mg PO QPM 01/21/21 03/10/24 History aspirin 81 mg tablet,delayed 81 mg PO QAM 09/25/21 03/10/24 History release calcium carbonate 600 mg-vitamin 1 tab PO BID 09/25/21 03/10/24 History D3 10 mcg (400 unit) tablet (Calcium 600 + D(3)) peg 400-propylene glycol (PF) 0.4 1 drp ophthalmic (eye) QID 09/25/21 03/10/24 History %-0.3 % eye drops in a dropperette (Systane (PF)) semaglutide 7 mg tablet (Rybelsus) 7 mg PO QAM 09/25/21 03/10/24 History blood sugar diagnostic (OneTouch #10 ea 01/17/24 03/09/24 History Verio test strips) buspirone 10 mg tablet 10 mg PO BID PRN Anxiety 01/17/24 03/10/24 History ibuprofen 200 mg tablet 200 mg PO Q4H PRN Pain 01/17/24 03/10/24 History lancets 30 gauge (OneTouch Delica #100 ea 01/17/24 03/09/24 History Plus Lancet) meclizine 25 mg tablet 25 mg PO TID PRN dizziness 01/17/24 03/10/24 History metformin 500 mg tablet,extended 500 mg PO DAILY 01/17/24 03/10/24 History release 24 hr tramadol 50 mg tablet 25 mg PO BID PRN Pain 01/17/24 03/10/24 History fluticasone propionate 50 2 spray intranasal DAILY #15.8 mL 02/10/24 03/10/24 Rx mcg/actuation nasal spray,suspension atorvastatin 20 mg tablet (Lipitor) 20 mg PO QAM #90 tabs 02/14/24 03/10/24 Rx gabapentin 100 mg capsule 100 mg PO BID #180 caps 02/14/24 03/10/24 Rx alendronate 70 mg tablet 70 mg PO WK 03/10/24 03/10/24 History olopatadine 0.1 % eye drops 1 drp ophthalmic (eye) BID 03/10/24 03/10/24 History Patient History Medical History (Updated 03/11/24 @ 09:44 by Dimitry Andrade MD) History of benign breast biopsy Osteoarthritis DDD (degenerative disc disease) Diverticular disease DM type 2 (diabetes mellitus, type 2) Hearing deficit Left > Right (wears hearing aid on left side) Surgical History History of right cataract surgery History of tonsillectomy History of removal of cyst History of colonoscopy History of laparoscopic appendectomy Hx laparoscopic cholecystectomy Family History Mother Stroke Cancer Sister Heart disease Son Heart disease Myocardial infarction Denies family history of Hearing loss No family history of adverse response to anesthesia No family history of bleeding disorder Allergies Asthma Social History Smoking Status: Never smoker Second Hand Exposure: Yes (son and d-i-l smoke); Do You Dip or Chew Tobacco: No; Hx Alcohol Use: No Hx Substance Use: No Preferred Language: Turkish Communication Ability: Effective Visual Impairment: Limited Hearing Ability: Use of Hearing Aid 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 Beliefs That Will Affect Care: None marital status: / Current Living Situation: Alone Current Living Situation Comment: senior citizen apartment current occupational status: retired How many Children do You have: 3 Feels Safe at Home: Yes Childhood Exposure to Second-Hand Smoke: Yes caffeine: Yes (1 cup of coffee/tea per day) Dental Care, Regularly: No Physical Activity Frequency: Does not Exercise Seatbelt Use: always Sunscreen Use: Yes Assistive Devices: Cane, Scooter/Electric Scooter and Walker Review of Systems Review of Systems: All systems reviewed & are unremarkable except as noted in HPI & below Physical Exam 2 Constitutional: WD/WN, vitals as above Respiratory: normal respiratory effort, lungs clear to auscultation Cardiovascular: RRR, no murmur, no edema Gastrointestinal (Abdomen): mild lower abdominal tenderness to palpation, no guarding, soft, normal bowel sounds. Psychiatric: Orientation: alert and oriented x 3 Affect: euthymic affect Results & Data Vital Signs (Past 12 Hours) Vital Signs Temp Pulse Pulse Pulse Resp BP BP 03/10/24 13:18 03/10/24 13:09 98.1 F 97 H 18 103/7 L 03/10/24 09:00 80 20 120/61 03/10/24 07:00 03/10/24 06:58 03/10/24 06:35 98.4 F 103 H 19 128/74 03/10/24 06:18 104 H 05/17/24 06:00 98.6 F 106 H 20 112/64 Pulse Ox O2 Del Method O2 Flow Rate 03/10/24 13:18 Nasal Cannula 2 03/10/24 13:09 96 Nasal Cannula 2 03/10/24 09:00 96 Nasal Cannula 2 03/10/24 07:00 96 Nasal Cannula 2 03/10/24 06:58 88 L Room Air 03/10/24 06:35 94 Room Air 03/10/24 06:18 03/10/24 06:00 92 Room Air Coding Level of Care Code 70370 INT INP/OBS CARE 2/55MIN Diagnoses Colitis K52.9
[2024-03-10 13:52] LABS: Cdiff Antigen Positive
[2024-03-10 13:55] LABS: Cdiff Toxin A+B Positive Cdiff Toxin (Negative)
[2024-03-10 13:56] LABS: Adenovirus F 40/41 PCR Not Detected (NotDetected); Astrovirus PCR Not Detected (NotDetected); Campylobacter PCR Not Detected (NotDetected); Cryptosporidium PCR Not Detected (NotDetected); Cyclospora cayetanensis PCR Not Detected (NotDetected); E.coli O157 PCR Not Detected (NotDetected); Entamoeba histolytica PCR Not Detected (NotDetected); Enteroaggregative E.coli(EAEC) Not Detected (NotDetected); Enterotoxigenic E.coli (ETEC) Not Detected (NotDetected); Giardia lamblia PCR Not Detected (NotDetected); Norovirus GI/GII PCR Not Detected (NotDetected); Plesiomonas shigelloides PCR Not Detected (NotDetected); Rotavirus A PCR Not Detected (NotDetected); Salmonella PCR Not Detected (NotDetected); Sapovirus PCR Not Detected (NotDetected); Shigella/Enteroinvasive E.coli Not Detected (NotDetected); Vibrio cholerae PCR Not Detected (NotDetected); Vibrio species PCR Not Detected (NotDetected); Yersinia enterocolitica PCR Not Detected (NotDetected)
[2024-03-10 13:59] LABS: Shiga-like Toxin E.coli (STEC) DETECTED (NotDetected)
[2024-03-10] MEDS: INSULIN ASPART PER UNIT CHARGE SC STA (14:08)
[2024-03-10] MEDS: ONDANSETRON INJ 2 MG/ML 2 ML VIAL IV PRN (14:13)
[2024-03-10] MEDS: SODIUM CHLORIDE 0.9% 1,000 ML IV SCH (14:13)
[2024-03-10] MEDS: PIPER/TAZO 4.5g in D5W MINI-B 100 ML IV ONE (15:08)
[2024-03-10] MEDS: INSULIN ASPART PER UNIT CHARGE SC SCH (17:27)
[2024-03-10] MEDS: VANCOMYCIN HCL 125 MG/2.5ML SOLN PO SCH (17:28)
[2024-03-10] MEDS: CHERRY SYRUP 5 ML UDP PO SCH (17:28)
[2024-03-10] MEDS: PIPERACILLIN/TAZOBACTAM 4.5 GM in DEXTROSE 5% MINI-B 100 ML IV SCH (20:06)
[2024-03-10] MEDS: GABAPENTIN 100 MG CAP PO SCH (20:09)
[2024-03-10] MEDS: CALCIUM 600MG + VIT D 400 IU TAB PO SCH (20:09)
[2024-03-11 06:53] LABS: BUN Creatinine Ratio 20.9 (10-20); Calcium 7.6 mg/dl (8.6-10.3); Creatinine Clr Calc Pharmacy 40.5 ml/min; Est GFR (African American) 72.9 ml/min; Est GFR (Non-African American) 62.9 ml/min; Potassium 2.7 mmol/L (3.5-5.1)
[2024-03-11 06:55] LABS: Hematocrit (blood only) 37.3 % (37.0-47.0); Hemoglobin 12.5 g/dl (12.0-16.0); Mean Corpuscular Hemoglobin 31.2 pg (25.0-34.0); Mean Corpuscular Hgb Conc 33.5 g/dL (32.0-36.0); Platelet Count 240 K/uL (130-400); RDW Coefficient of Variation 13.8 % (11.5-14.5); Red Blood Count 4.01 M/uL (4.20-5.40); White Blood Count 8.07 K/ul (4.8-10.8)
[2024-03-11] MEDS: ASPIRIN 81 MG ECTAB PO SCH (08:56)
[2024-03-11] MEDS: POTASSIUM CHLORIDE CRTAB 20 MEQ TABCR PO STA (08:56)
[2024-03-11] MEDS: ATORVASTATIN 20 MG TAB PO SCH (08:56)
[2024-03-11] MEDS: AZITHROMYCIN 500 MG in DEXTROSE 5% 250 ML IV SCH (09:41)
--- NOTE | 2024-03-11 09:48 | Hospitalist Progress Note ---
Date of Service March 11, 2024 Assessment & Plan (1) C. difficile colitis: Plan: Patient presents to the hospital with 2-day history of abdominal pain and diarrhea. Denies any blood in the stool. CT scan of the abdomen pelvis showed evidence of diffuse colitis. stool positive for C Diff Still having about 4 liquid stools per day Continue PO Vancomycin 125mg Q6h (2) Lobar pneumonia: Plan: CT showed evidence of lobar consolidation, likely pneumonia Cultures have been obtained Empirically started on IV Azithromycin and Zosyn Continue to monitor cultures. (3) Hypoxia: Plan: Secondary to pneumonia above Now on room air (4) Diabetes: Plan: Blood glucose under good control, takes metformin at home, will hold Start insulin sliding scale Diabetic diet. (5) Anxiety: Plan: Resume home medications (6) Osteoporosis: Plan: Resume home medications (7) Colitis: Plan hopefully discharge when having less than 2 liquid bm a day Full code DVT prophylaxis SCDs. Admission and Anticipated Discharge Date Admission Date: March 10, 2024 Review of Systems Review of Systems: All systems reviewed are negative, apart from the ones contained in the history. Physical Exam Physical Exam: The patient is awake, alert and oriented 3, well developed and well nourished, normocephalic and atraumatic, lying in bed and in no acute distress. HEENT--PERRL, EOMI, mucous membranes and oropharynx mildly dry Neck--supple. No JVD. No bruits. Thyroid normal, trachea midline, no adenopathy. Heart--normal S1 and S2. No murmurs, rubs or gallops. Lungs--clear bilaterally, no respiratory distress, no accessory muscle use. Abdomen--normal bowel sounds and soft. Extremities--no cyanosis or clubbing. No edema. Dermatologic--normal skin turgor, normal color, no abnormal lymph nodes, no rash. Neurologic--cranial nerves II through XII grossly intact. Rheumatologic--normal range of motion. Psychiatric--normal affect. Results & Data Results & Data Vital Signs (Past 12 Hours) Vital Signs Temp Pulse Resp BP BP Pulse Ox O2 Del Method 03/11/24 08:37 102/66 03/11/24 07:34 98.1 F 75 18 96/67 L 94 Room Air 03/11/24 01:32 Nasal Cannula 03/10/24 21:57 97.7 F 88 18 114/72 97 Nasal Cannula O2 Flow Rate 03/11/24 08:37 03/11/24 07:34 03/11/24 01:32 2 03/10/24 21:57 2 PG Care Time/CCT Total # of Minutes Spent Total Time Spent with Patient: Total time spent is greater than 50% in coordination of care (as documented) at patient's floor/unit and/or counseling patient: Coding Level of Care Code 25284 SUB INP/OBS CARE 2/35MIN Diagnoses C. difficile colitis A04.72 Lobar pneumonia J18.1 Hypoxia R09.02 Diabetes E11.9 Anxiety F41.9 Osteoporosis M81.0 Colitis K52.9 Time Spent (min) 35
--- NOTE | 2024-03-11 10:13 | Electrocardiogram Report ---
Test Reason : Blood Pressure : / mmHG Vent. Rate : 101 BPM Atrial Rate : 101 BPM P-R Int : 146 ms QRS Dur : 114 ms QT Int : 360 ms P-R-T Axes : 039 007 112 degrees QTc Int : 466 ms Sinus tachycardia Incomplete left bundle block Abnormal ECG When compared with ECG of 15-APR-2016 17:31, QRS duration has increased Incomplete left bundle block is now Present T wave inversion now evident in Lateral leads Confirmed by Carson Sainz ([id number]) on 03/11/2024 10:13:04 AM Referred By: Bartolome Rodriguez Confirmed By:Carson Sainz
[2024-03-12] MEDS: ACETAMINOPHEN 325 MG TAB PO PRN (05:29)
[2024-03-12 07:09] LABS: Hemoglobin 11.3 g/dl (12.0-16.0); Mean Corpuscular Hgb Conc 33.2 g/dL (32.0-36.0); Mean Corpuscular Volume 93.2 fL (80.0-100.0); Mean Platelet Volume 9.8 fL (9.4-12.4); Platelet Count 234 K/uL (130-400); RDW Coefficient of Variation 14.1 % (11.5-14.5); RDW Standard Deviation 48.6 fL (36.4-46.3); Red Blood Count 3.65 M/uL (4.20-5.40); White Blood Count 6.59 K/ul (4.8-10.8)
[2024-03-12 07:30] LABS: BUN Creatinine Ratio 8.9 (10-20); Calcium 7.3 mg/dl (8.6-10.3); Creatinine Clr Calc Pharmacy 44.1 ml/min; Est GFR (African American) 80.8 ml/min; Est GFR (Non-African American) 69.7 ml/min; Potassium 2.8 mmol/L (3.5-5.1)
[2024-03-12] MEDS: POTASSIUM CHLORIDE CRTAB 20 MEQ TABCR PO STA (08:03)
--- NOTE | 2024-03-12 09:27 | Hospitalist Progress Note ---
Date of Service March 12, 2024 Assessment & Plan (1) C. difficile colitis: Plan: Patient presents to the hospital with 2-day history of abdominal pain and diarrhea. Denies any blood in the stool. CT scan of the abdomen pelvis showed evidence of diffuse colitis. stool positive for C Diff Only 1 episode of diarrhea today so far Continue PO Vancomycin 125mg Q6h (2) Lobar pneumonia: Plan: CT showed evidence of lobar consolidation, likely pneumonia Cultures have been obtained Empirically started on IV Azithromycin and Zosyn Continue to monitor cultures. (3) Hypoxia: Plan: Secondary to pneumonia above Now on room air (4) Diabetes: Plan: Blood glucose under good control, takes metformin at home, will hold Start insulin sliding scale Diabetic diet. (5) Anxiety: Plan: Resume home medications (6) Osteoporosis: Plan: Resume home medications (7) Colitis: Plan hopefully discharge when having less than 2 liquid bm a day Full code DVT prophylaxis SCDs. Admission and Anticipated Discharge Date Admission Date: March 10, 2024 Subjective Patient seen and examined, only 1 episode of diarrhea today, states abdominal pain is much improved, denies chills or fevers overnight. Review of Systems Review of Systems: All systems reviewed are negative, apart from the ones contained in the history. Physical Exam Physical Exam: The patient is awake, alert and oriented 3, well developed and well nourished, normocephalic and atraumatic, lying in bed and in no acute distress. HEENT--PERRL, EOMI, mucous membranes and oropharynx mildly dry Neck--supple. No JVD. No bruits. Thyroid normal, trachea midline, no adenopathy. Heart--normal S1 and S2. No murmurs, rubs or gallops. Lungs--clear bilaterally, no respiratory distress, no accessory muscle use. Abdomen--normal bowel sounds and soft. Extremities--no cyanosis or clubbing. No edema. Dermatologic--normal skin turgor, normal color, no abnormal lymph nodes, no rash. Neurologic--cranial nerves II through XII grossly intact. Rheumatologic--normal range of motion. Psychiatric--normal affect. Results & Data Results & Data Vital Signs (Past 12 Hours) Vital Signs Temp Pulse Resp BP Pulse Ox O2 Del Method 03/12/24 08:34 Room Air 03/12/24 07:32 97.7 F 59 L 15 100/63 95 Room Air PG Care Time/CCT Total # of Minutes Spent Total Time Spent with Patient: Total time spent is greater than 50% in coordination of care (as documented) at patient's floor/unit and/or counseling patient: Coding Level of Care Code 71128 SUB INP/OBS CARE 2/35MIN Diagnoses C. difficile colitis A04.72 Lobar pneumonia J18.1 Hypoxia R09.02 Diabetes E11.9 Anxiety F41.9 Osteoporosis M81.0 Colitis K52.9 Time Spent (min) 35
[2024-03-12] MEDS: CARBOHYDRATES FOR HYPOGLYCEMIA PO PRN (16:45)
[2024-03-12] MEDS ORDERED: GLUCOSE 10 TAB/TUBE PO PRN (16:51)
[2024-03-12] MEDS ORDERED: GLUCAGON FOR INJ 1 MG VIAL SQ PRN (16:51)
[2024-03-12] MEDS ORDERED: DEXTROSE 50% 50 ML SYRINGE IV PRN (16:51)
[2024-03-12] MEDS ORDERED: GLUCOSE 40% GEL 15 GM TUBE PO PRN (16:51)
[2024-03-12] MEDS: POTASSIUM CHLORIDE CRTAB 20 MEQ TABCR PO SCH (20:20)
[2024-03-13 06:39] LABS: BUN Creatinine Ratio 5.6 (10-20); Calcium 7.1 mg/dl (8.6-10.3); Creatinine Clr Calc Pharmacy 49.1 ml/min; Est GFR (African American) 91.9 ml/min; Est GFR (Non-African American) 79.3 ml/min; Potassium 3.3 mmol/L (3.5-5.1)
[2024-03-13] MEDS: POTASSIUM CHLORIDE CRTAB 20 MEQ TABCR PO STA (08:36)
--- NOTE | 2024-03-13 10:00 | Hospitalist Progress Note ---
Date of Service March 13, 2024 Assessment & Plan (1) C. difficile colitis: Plan: Patient presents to the hospital with 2-day history of abdominal pain and diarrhea. Denies any blood in the stool. CT scan of the abdomen pelvis showed evidence of diffuse colitis. stool positive for C Diff Only 2 episodes of fairly formed stool today Continue PO Vancomycin 125mg Q6h (2) Lobar pneumonia: Plan: CT showed evidence of lobar consolidation, likely pneumonia Cultures have been obtained Empirically started on IV Azithromycin and Zosyn, changed to Unasyn and Doxy Continue to monitor cultures. de escalate before d/c (3) Hypoxia: Plan: Secondary to pneumonia above Now on room air (4) Diabetes: Plan: Blood glucose under good control, takes metformin at home, will hold Start insulin sliding scale Diabetic diet. (5) Anxiety: Plan: Resume home medications (6) Osteoporosis: Plan: Resume home medications (7) Colitis: Plan hopefully discharge tomorrow Full code DVT prophylaxis SCDs. Admission and Anticipated Discharge Date Admission Date: March 10, 2024 Subjective Patient seen and examined, only 2 episodes of fairly formed stool today, states abdominal pain is much improved, denies chills or fevers overnight. Review of Systems Review of Systems: All systems reviewed are negative, apart from the ones contained in the history. Physical Exam Physical Exam: The patient is awake, alert and oriented 3, well developed and well nourished, normocephalic and atraumatic, lying in bed and in no acute distress. HEENT--PERRL, EOMI, mucous membranes and oropharynx mildly dry Neck--supple. No JVD. No bruits. Thyroid normal, trachea midline, no adenopathy. Heart--normal S1 and S2. No murmurs, rubs or gallops. Lungs--clear bilaterally, no respiratory distress, no accessory muscle use. Abdomen--normal bowel sounds and soft. Extremities--no cyanosis or clubbing. No edema. Dermatologic--normal skin turgor, normal color, no abnormal lymph nodes, no rash. Neurologic--cranial nerves II through XII grossly intact. Rheumatologic--normal range of motion. Psychiatric--normal affect. Results & Data Results & Data Vital Signs (Past 12 Hours) Vital Signs Temp Pulse Resp BP Pulse Ox O2 Del Method 03/13/24 07:41 97.3 F L 65 16 119/77 97 Room Air PG Care Time/CCT Total # of Minutes Spent Total Time Spent with Patient: Total time spent is greater than 50% in coordination of care (as documented) at patient's floor/unit and/or counseling patient: Coding Level of Care Code 43376 SUB INP/OBS CARE 2/35MIN Diagnoses C. difficile colitis A04.72 Lobar pneumonia J18.1 Hypoxia R09.02 Diabetes E11.9 Anxiety F41.9 Osteoporosis M81.0 Colitis K52.9 Time Spent (min) 35
[2024-03-13] MEDS: DOXYCYCLINE HYCLATE 100 MG in D5W MINI-B 100 ML (Q12H) IV SCH (10:42)
[2024-03-13] MEDS: AMPICILLIN/SULBACTAM SOD 3,000 MG in SODIUM CHLOR 0.9% MINI-B 100 ML IV SCH (13:05)
[2024-03-14 07:14] LABS: Hematocrit (blood only) 36.3 % (37.0-47.0); Hemoglobin 12.3 g/dl (12.0-16.0); Mean Corpuscular Hemoglobin 31.2 pg (25.0-34.0); Mean Corpuscular Hgb Conc 33.9 g/dL (32.0-36.0); Mean Corpuscular Volume 92.1 fL (80.0-100.0); Mean Platelet Volume 9.5 fL (9.4-12.4); Platelet Count 271 K/uL (130-400); RDW Coefficient of Variation 14.4 % (11.5-14.5); RDW Standard Deviation 49.2 fL (36.4-46.3); Red Blood Count 3.94 M/uL (4.20-5.40); White Blood Count 8.52 K/ul (4.8-10.8)
[2024-03-14 07:44] LABS: Calcium 8.4 mg/dl (8.6-10.3)
[2024-03-14 07:50] LABS: Est GFR (African American) 94.9 ml/min; Est GFR (Non-African American) 81.9 ml/min
--- NOTE | 2024-03-14 10:51 | Discharge Summary ---
Date of Service March 14, 2024 Admission HPI Per Admitting Provider Is an 84-year-old female with a history of type 2 diabetes, osteoporosis, anxiety who presents to the hospital with complaints of abdominal pain and diarrhea. According to the patient patient was in her usual state of health until last Wednesday couple of days ago when she developed lower quadrant abdominal pain followed by diarrhea. She denies blood in the stool denies fevers or chills but said because the above symptoms were not getting any better she decided to come to the hospital for further evaluation. In the emergency department WBC was 13,000 CT scan of the abdomen and pelvis was done which showed evidence of nonspecific proctocolitis greatest involving the left colon. The lung cuts also showed evidence of airspace consolidation. Of note patient states he she started coughing yesterday prior. Cultures have been obtained she has been empirically started on IV antibiotics and will be admitted to the hospital further management. Principal Diagnosis C diff colitis, PNA Discharge Exam The patient is awake, alert and oriented 3, well developed and well nourished, normocephalic and atraumatic, lying in bed and in no acute distress. HEENT--PERRL, EOMI, mucous membranes and oropharynx mildly dry Neck--supple. No JVD. No bruits. Thyroid normal, trachea midline, no adenopathy. Heart--normal S1 and S2. No murmurs, rubs or gallops. Lungs--clear bilaterally, no respiratory distress, no accessory muscle use. Abdomen--normal bowel sounds and soft. Extremities--no cyanosis or clubbing. No edema. Dermatologic--normal skin turgor, normal color, no abnormal lymph nodes, no rash. Neurologic--cranial nerves II through XII grossly intact. Rheumatologic--normal range of motion. Psychiatric--normal affect. Discharge Data Allergies Allergy/AdvReac Type Severity Reaction Status Date / Time cephalexin Allergy Unknown UNKNOWN Verified 03/09/24 16:43 morphine Allergy Unknown UNKNOWN Verified 03/09/24 16:43 Sulfa (Sulfonamide Allergy Unknown Hives Verified 03/09/24 16:43 Antibiotics) Cephalosporins Allergy Unknown Verified 03/09/24 16:43 codeine AdvReac Unknown disoriented Verified 03/09/24 16:43 metronidazole AdvReac Unknown hallucinati Verified 03/09/24 16:43 ons Consultations 03/10/24 09:26 ED Decision to Admit Stat 03/10/24 13:09 Consult Gastroenterology Routine Ordered Studies 03/10/24 06:08 CT abd pelvis IV con only Stat Hospital Course (1) C. difficile colitis: Patient presents to the hospital with 2-day history of abdominal pain and diarrhea. Denies any blood in the stool. CT scan of the abdomen pelvis showed evidence of diffuse colitis. stool positive for C Diff Only 1 episode of fairly formed stool today Continue PO Vancomycin 125mg Q6h upon discharge (2) Lobar pneumonia: CT showed evidence of lobar consolidation, likely pneumonia Cultures have been obtained Empirically started on IV Azithromycin and Zosyn, changed to Unasyn and Doxy Continue to monitor cultures. de escalate before d/c (3) Hypoxia: Secondary to pneumonia above Now on room air (4) Diabetes: Blood glucose under good control, takes metformin at home, will hold Start insulin sliding scale Diabetic diet. (5) Anxiety: Resume home medications (6) Osteoporosis: Resume home medications (7) Colitis: Plan d/c home Full code DVT prophylaxis SCDs. Total Time Total Time Spent Total Time Spent (In Minutes): 35 Discharge Plan Discharge Items Patient Disposition: Home - Self-Care Reason For Visit: DIVERTICULITIS Discharge Diagnosis: C diff colitis Activity: Resume your previous activity Non-emergency contact: Primary Care Provider Call non-emergency contact if: you have any medication questions Follow-up/Referrals: Henri Teran CRNP [Primary Care Provider] - 03/27/24 11:00 am Diet: Regular Addtl Attending Provider Instructions: please make appointment to follow up with your PCP Pending Studies at Discharge: No Stand-Alone Forms: My [facility] [place], Smoking Cessation Medications and DC Order Prescriptions: New vancomycin 125 mg capsule 125 mg PO Q6H 7 Days Qty: 28 0RF doxycycline hyclate 100 mg capsule 100 mg PO BID 3 Days Qty: 6 0RF Continued fluticasone propionate 50 mcg/actuation spray,suspension 2 spray intranasal DAILY Qty: 15.8 3RF Rx Instructions: administer into each nostril gabapentin 100 mg capsule 100 mg PO BID Qty: 180 3RF atorvastatin [Lipitor] 20 mg tablet 20 mg PO QAM Qty: 90 3RF levocetirizine [Xyzal] 5 mg tablet 2.5 mg PO QPM Rx Instructions: Unable to verify OTC meds at this date/time. meclizine 25 mg tablet 25 mg PO TID PRN (Reason: dizziness) tramadol 50 mg tablet 25 mg PO BID PRN (Reason: Pain) (DME) OneTouch Verio test strips Strip See Rx Instructions .ROUTE .MEDSUPPLY Qty: 10 Rx Instructions: As directed (DME) lancets [OneTouch Delica Plus Lancet] 30 gauge misc See Rx Instructions .ROUTE .MEDSUPPLY Qty: 100 Rx Instructions: As directed metformin 500 mg tablet extended release 24 hr 500 mg PO DAILY aspirin 81 mg Tablet,Delayed Release (Dr/Ec) 81 mg PO QAM Rx Instructions: Unable to verify OTC meds at this date/time. Systane (PF) 0.4-0.3 % Dropperette 1 drp OPHTHALMIC (EYE) QID Rx Instructions: Unable to verify OTC meds at this date/time. calcium carbonate-vitamin D3 [Calcium 600 + D(3)] 600 mg-10 mcg (400 unit) Tablet 1 tab PO BID Rx Instructions: Unable to verify OTC meds at this date/time. Rybelsus 7 mg Tablet 7 mg PO QAM buspirone 10 mg tablet 10 mg PO BID PRN (Reason: Anxiety) ibuprofen 200 mg tablet 200 mg PO Q4H PRN (Reason: Pain) Rx Instructions: Unable to verify OTC meds at this date/time. olopatadine 0.1 % drops 1 drp ophthalmic (eye) BID Rx Instructions: At intervals of 6 - 8 hours alendronate 70 mg tablet 70 mg PO WK Rx Instructions: 70 mg orally TAKE 1 TABLET BY MOUTH ONCE A WEEK WITH 8OZ OF WATER 30 MINUTES BEFORE FIRST MEAL OF THE DAY; Discharge Orders: Discharge Order (Routine); Ordered 03/14/24 Ordered By: Dimitry Andrade Admission Data Admit Date/Time: 03/10/24 10:00 Attending Provider: Dimitry Andrade Admit Provider: Dimitry Andrade Primary Care Provider: Henri Teran Other Providers: Bartolome Rodriugez; Abdirahman Martines Other Interventions: Discharge Summary Assessment (RN) Last Done: 03/14/24 10:10 Coding Level of Care Code 03868 INP/OBS DISCH >30 MIN Diagnoses C. difficile colitis A04.72 Lobar pneumonia J18.1 Hypoxia R09.02 Diabetes E11.9 Anxiety F41.9 Osteoporosis M81.0 Colitis K52.9 Time Spent (min) 35
== END 2024-03-14 11:49 | disposition home or self-care (01) | DRG 371 ==
LOC: SUATTDRO → ED 05:56 → SUATTDRO 10:00 → 3N 10:00